=== PATIENT | female | born 1980 | race Caucasian/White ===

== ENCOUNTER 2020-09-22 10:57 | Outpatient (CLI) | payer OTHER, SELFPAY ==
--- NOTE | ~2020-09-22 | MM_ITS ---
EXAMINATION: MM screening paige BI w miguel a HISTORY: Screening mammogram TECHNIQUE: Craniocaudal and mediolateral oblique 3-D tomosynthesis images were obtained and synthetic 2-D images were generated. Bilateral rotated lateral cc views. CAD analysis was submitted and interp reted. COMPARISON: No prior mammogram is available for comparison at this institution. BREAST PARENCHYMAL COMPOSITION: The breasts are extremely dense, which lowers the sensitivity of mamm ography. FINDINGS: Bilateral mammographic asymmetries are noted. Bilateral diagnostic mammography and bilatera l breast ultrasound examination are recommended. IMPRESSION: 1. Bilateral mammographic asymmetries 2. Bilateral diagnostic mammography and bilateral breast ultrasound examination are recommended. BI-RADS Category 0: Incomplete: Needs additional imaging evaluation. Reviewed, dictated and finalized at location A.
== END 2020-09-22 10:58 | disposition home or self-care (01) ==
PROVIDERS: PCP Emergency Medicine; Visit Provider Obstetrics & Gynecology Gynecology
DX: Z12.31 Encounter for screening mammogram for malignant neoplasm of breast (principal); R92.8 Other abnormal and inconclusive findings on diagnostic imaging of breast
CPT/HCPCS: 77063; 77067

== ENCOUNTER 2020-10-15 11:53 | Outpatient (CLI) | payer OTHER, SELFPAY ==
--- NOTE | ~2020-10-15 | MMUS_ITS ---
EXAMINATION: MM diagnostic mammo BI, US breast BI limited HISTORY: Bilateral asymmetries on baseline screening mammogram TECHNIQUE: Additional 3-D tomosynthesis images of the breasts were performed and synthetic 2-D images were generated. CAD analysis was submitted and interpreted. High resolution limited bilateral breast ultrasound was performed. COMPARISON: 09/22/2020 FINDINGS: MAMMOGRAPHIC FINDINGS: Right breast: There is a 3.1 cm oval, obscured, low density mass in the anterior third of the upper o uter quadrant of the breast at the 10:00 location. There is a 7 mm oval, obscured, low density mass a t the 1:00 location in the middle/posterior third of the breast 6 cm from the nipple. Left breast: There is a 1.7 cm obscured low density mass in the anterior third of the outer breast at the 5:00 location 3 cm from the nipple. ULTRASOUND: Right breast: There is a 4.6 x 0.9 cm cyst at the 11:00 location. A 9 mm x 5 mm oval, anechoic, not p arallel mass is present at the 1:00 location 2 cm from the nipple which demonstrates posterior acoust ic enhancement and no internal vascularity. There is a 10 mm cyst at the 1:00 location 5 cm from the nipple. Left breast: There is a 1.5 x 0.9 cm cyst at the 5:00 location 3 cm from the nipple. There is a 9 mm x 5 mm cyst at the 8:00 location. IMPRESSION: 1. Probably benign right breast mass at the 1:00 location 2 cm from the nipple. 2. Recommend 6 month follow-up right diagnostic mammogram and ultrasound. BI-RADS category 3, probably benign findings. Reviewed, dictated and finalized at location A. IMPRESSION: 1. Probably benign right breast mass at the 1:00 location 2 cm from the nipple. 2. Recommend 6 month follow-up right diagnostic mammogram and ultrasound. BI-RADS category 3, probably benign findings.
== END 2020-10-15 11:54 | disposition home or self-care (01) ==
LOC: ANHIMG 11:54
PROVIDERS: PCP Emergency Medicine; Visit Provider Obstetrics & Gynecology Gynecology
DX: R92.8 Other abnormal and inconclusive findings on diagnostic imaging of breast (principal)
CPT/HCPCS: 76642; 77066

== ENCOUNTER 2022-07-04 11:47 | Outpatient (CLI) | payer BC, SELFPAY ==
--- NOTE | ~2022-07-04 | MMUS_ITS ---
EXAMINATION: MM diagnostic paige BI w miguel a, US breast RT limited HISTORY: Follow-up right breast mass TECHNIQUE: Additional 3-D tomosynthesis images of the breasts were performed and synthetic 2-D images were generated. CAD analysis was submitted and interpreted. High resolution limited right breast ult rasound was performed. COMPARISON: Comparison to multiple prior studies sequentially, with oldest reviewed study dated 09/22. BREAST PARENCHYMAL COMPOSITION: The breasts are extremely dense, which lowers the sensitivity of mamm ography FINDINGS: MAMMOGRAPHIC FINDINGS: The breasts are stable. Focal asymmetry in the lower inner quadrant of the right breast posteriorly i s unchanged. No new masses, calcifications or architectural distortion. ULTRASOUND: Limited right breast ultrasound: At 1:00, 2 cm from the nipple, there are 2 adjacent cysts, largest m easuring 6 mm. No suspicious masses to suggest malignancy. IMPRESSION: 1. Stable bilateral mammogram and right breast ultrasound. No suspicious abnormalities to suggest mal ignancy. 2. Routine yearly screening mammogram and regular clinical breast examination are recommended. BI-RADS Category 2: Benign finding(s). Reviewed, dictated and finalized at location A. [facility] IMPRESSION: 1. Stable bilateral mammogram and right breast ultrasound. No suspicious abnorm alities to suggest malignancy. 2. Routine yearly screening mammogram and regular clinical breast examination a re recommended. BI-RADS Category 2: Benign finding(s).
== END 2022-07-04 11:48 | disposition home or self-care (01) ==
LOC: ANHIMG 11:49
PROVIDERS: PCP Emergency Medicine; Visit Provider Obstetrics & Gynecology Gynecology
DX: N63.10 Unspecified lump in the right breast, unspecified quadrant (principal)
CPT/HCPCS: 76642; 77062; 77066; G0279

== ENCOUNTER 2023-12-23 00:04 | Day surgery (SDC) | payer OTHER, SELFPAY ==
[2023-12-07 14:37] VITALS: BMI 21.3
[2023-12-23 07:19] VITALS: BP 117/97; PULSE 107; RESP 18; TEMP 36.3; O2SAT 100
[2023-12-23] MEDS: LACTATED RINGERS 1,000 ML 150 ML IV CONT (07:34)
--- NOTE | 2023-12-23 07:51 | PM.HPGS ---
History of Present Illness History of Present Illness Consent: Risks, benefits, and alternatives have been discussed and questions answered. Patient agrees to proceed with procedure. Chief complaint: Neoplasm screening Narrative: Lindy Musa is a 43 year old female here for first screening colonoscopy Review of Systems Review of Systems: All systems reviewed & are unremarkable except as noted in HPI and below PMFSH Past Medical History Medical History (Updated 12/23/23 @ 07:52 by Jesus Vincent MD) Colon cancer screening Hives Family History Family History Father Dementia Mother No problems noted. Social History Social History (System 08/30/21 @ 12:18 by Ammy Ramos) Social History: Patient drinks caffeine once daily Smoking status: Current every day smoker Tobacco type: e-cigarettes/vaping Alcohol intake: current Drinks per week: 4 Substance use: never Substance use type: does not use Occupation/Education: occupation Additional occupation/education comments: [employer] Gender identity (if verbalized by the patient): Female Sexual Orientation (if Verbalized by the Patient): Straight or Heterosexual Spiritual care concerns: No Meds Home Medications and Allergies Home Medications Medication Instructions Recorded Confirmed Type cholecalciferol (vitamin D3) 1,250 1,250 mcg PO WEEKLY 09/11/20 12/07/23 History mcg (50,000 unit) capsule levonorgestrel 21 mcg/24 hr (up to 1 device intrauterine ONCE 09/11/20 12/07/23 History 8 years) 52 mg intrauterine device (Mirena) oxybutynin chloride 5 mg tablet 5 mg PO DAILY 12/07/23 12/07/23 History Allergies Allergy/AdvReac Type Severity Reaction Status Date / Time No Known Allergies Allergy Unverified 12/23/23 07:15 Vital Signs Vital Signs - 24 hr 12/23/23 07:19 Temperature 97.3 F L Pulse Rate 107 H Respiratory Rate 18 Blood Pressure 117/97 H Pulse Oximetry 100 Oxygen Delivery Room Air Exam Const: General: comfortable and no acute distress HENMT: Face/Nose/Sinus: Normal nares present Eyes: General: appearance normal, both eyes and all related structures Neck: Neck: no JVD Resp: Auscultation: clear to auscultation bilaterally Cardio: Rate: regular rate Rhythm: regular rhythm GI: Inspection: non-distended GI Palp: Yes Soft to palpation Skin: General skin exam: normal color Neuro: General: gait normal Speech: normal speech Extrem: General: normal to inspection Psych: Mental Status: mental status grossly normal Assessment and Plan Assessment and plan (1) Colon cancer screening: Code(s): Z12.11 - Encounter for screening for malignant neoplasm of colon Status: Acute Assessment and Plan: colonoscopy
--- NOTE | 2023-12-23 08:01 | WPDANESEPPF ---
Anes - Initial Pre Proc Eval Procedure: Operation Date: 12/23/23 08:30 Proposed Procedures p Screening Colonoscopy - Jesus Vincent MD Date/Time: 12/23/23 08:01 Surgeon: Jesus Vincent MD Pre Op Diagnosis: Neoplasm screening Patient Data Age: 43 Gender: F Height: 1.57 m Weight: 52 kg Last Vital Signs Temp 97.3 F L 12/23/23 07:19 Pulse 107 H 12/23/23 07:19 Resp 18 12/23/23 07:19 BP 117/97 H 12/23/23 07:19 Pulse Ox 100 12/23/23 07:19 O2 Del Method Room Air 12/23/23 07:19 Allergies Allergy/AdvReac Type Severity Reaction Status Date / Time No Known Allergies Allergy Unverified 12/23/23 07:15 Home Medications Medication Instructions Recorded Confirmed Type cholecalciferol (vitamin D3) 1,250 1,250 mcg PO WEEKLY 09/11/20 12/07/23 History mcg (50,000 unit) capsule levonorgestrel 21 mcg/24 hr (up to 1 device intrauterine ONCE 09/11/20 12/07/23 History 8 years) 52 mg intrauterine device (Mirena) oxybutynin chloride 5 mg tablet 5 mg PO DAILY 12/07/23 12/07/23 History Patient hx anesthesia problems: none Family hx anesthesia problems: none Results Review: All pre-operative results and documents have been reviewed as part of the pre-operative evaluation. [facility] [place] [place] Past Medical History Medical History (Updated 12/23/23 @ 07:52 by Jesus Vincent MD) Colon cancer screening Hives Family History Family History Father Dementia Mother No problems noted. Social History Social History (System 08/30/21 @ 12:18 by Ammy Ramos) Social History: Patient drinks caffeine once daily Smoking status: Current every day smoker Tobacco type: e-cigarettes/vaping Alcohol intake: current Drinks per week: 4 Substance use: never Substance use type: does not use Occupation/Education: occupation Additional occupation/education comments: [employer] Gender identity (if verbalized by the patient): Female Sexual Orientation (if Verbalized by the Patient): Straight or Heterosexual Spiritual care concerns: No Anes - Eval Final PreProcedure Day of Procedure 12/23/23 08:01 Patient weight: normal Heart: regular rate and rhythm Lungs: clear to auscultation Airway: Mallampati scale class II Neurological: alert and oriented Last oral intake: >/= 8 hours ASA classification: II Emergent: no Anesthetic plan: proceed Anesthesia type and monitoring: general GIVS and standard monitoring Results Review: All pre-operative results and documents have been reviewed as part of the pre-operative evaluation. Informed Consent: The patient's anesthetic plan and its attendant risks and benefits were discussed with the patient/family/POA. Questions were solicited and answers provided to the satisfaction of the patient/family/POA.
[2023-12-23 08:45] VITALS: BP 104/70; PULSE 79; RESP 24; O2SAT 100
[2023-12-23 08:55] VITALS: BP 104/57; PULSE 70; RESP 20; O2SAT 100
[2023-12-23 09:05] VITALS: BP 105/70; PULSE 61; RESP 15; O2SAT 100
== END 2023-12-23 09:10 | disposition home or self-care (01) ==
PROVIDERS: PCP Emergency Medicine; Referring Provider Obstetrics & Gynecology Gynecology; Visit Provider Internal Medicine Gastroenterology
PROC: 0DJD8ZZ Inspection of Lower Intestinal Tract, Via Natural or Artificial Opening Endoscopic (ICD-10-PCS; CPT 45378; principal; 2023-12-23 08:30)
DX: Z12.11 Encounter for screening for malignant neoplasm of colon (principal); D12.3 Benign neoplasm of transverse colon; K64.8 Other hemorrhoids; K63.89 Other specified diseases of intestine; F17.290 Nicotine dependence, other tobacco product, uncomplicated
CPT/HCPCS: 45385; 88305; J2704; J7120

== ENCOUNTER 2024-05-13 11:16 | Outpatient (CLI) | payer OTHER, SELFPAY ==
[2024-05-13 12:11] LABS: Hematocrit 40.7 % (37.0-47.0); Hemoglobin 13.8 g/dL (12.0-15.0); Mean Corpuscular HGB Conc 33.9 g/dl (32-36); Mean Corpuscular Hemoglobin 31.3 pg (26-34); Mean Corpuscular Volume 92.3 fl (80-100); Mean Platelet Volume 9.9 fl (7.4-10.4); Platelet Count Result 298 k/mm3 (150-375); Red Blood Count 4.41 M/mm3 (4.2-5.4); Red Cell Distribution Width 11.5 % (11.5-14.5); White Blood Count 5.4 K/mm3 (4.5-10.0)
[2024-05-13 12:28] LABS: Alanine Aminotransferase 12 U/L (6-35); Alkaline Phosphatase 45 U/L (38-126); Anion Gap 6 mmol/L (4-12); Aspartate Amino Transferase 22 U/L (14-36); Bilirubin,Total 0.8 mg/dL (0.2-1.3); Blood Urea Nitrogen 15 mg/dL (7-17); Calcium 9.2 mg/dL (8.4-10.2); Carbon Dioxide 24 mmol/L (22-30); Chloride 106 mmol/L (98-107); Cholesterol 191 mg/dL (0-200); Estimated Glomerular Filt Rate > 60; Glucose 79 mg/dL (65-110); HDL Direct 85 mg/dL; Sodium 136 mmol/L (137-145); Triglycerides 45 mg/dL (<150)
[2024-05-13 12:33] LABS: Hemoglobin A1C 4.8 % (<5.7)
[2024-05-13 12:38] LABS: LDL Cholesterol Direct 84 mg/dL
[2024-05-13 12:58] LABS: Thyroid Stimulating Hormone 0.541 uIU/mL (0.465-4.680)
[2024-05-13 13:27] LABS: Free T4 Free Thyroxine 1.15 ng/dL (0.78-2.19); Vitamin D 25 Hydroxy 41.8 ng/mL
== END 2024-05-13 11:17 | disposition home or self-care (01) ==
LOC: ANHLAB 11:21
PROVIDERS: PCP Emergency Medicine; Visit Provider Nurse Practitioner
DX: Z01.419 Encounter for gynecological examination (general) (routine) without abnormal findings (principal); E55.9 Vitamin D deficiency, unspecified
CPT/HCPCS: 36415; 80053; 80061; 82306; 82607; 83036; 84439; 84443; 85027

== ENCOUNTER 2024-11-17 14:19 | Outpatient (CLI) | payer OTHER, SELFPAY ==
--- NOTE | ~2024-11-17 | MM_ITS ---
EXAMINATION: MM screening paige BI w miguel a HISTORY: Screening TECHNIQUE: Craniocaudal and mediolateral oblique 3-D tomosynthesis images were obtained and synthetic 2-D images were generated. CAD analysis was submitted and interpreted. COMPARISON: Comparison to multiple prior studies sequentially, with oldest reviewed study dated 09/22. BREAST PARENCHYMAL COMPOSITION: Dense: The breasts are extremely dense, which lowers the sensitivity of mammography. FINDINGS: There is no evidence of suspicious mass, calcification, or architectural distortion to sugg est malignancy in either breast. There has been no suspicious interval change. IMPRESSION: 1. No mammographic evidence of malignancy. 2. Recommend routine screening mammography in one year. BI-RADS Category 1: Negative Reviewed, dictated and finalized at location B.
--- OUTSIDE RECORDS SUMMARY | 2024-11-17 15:02 | XMS_ITS | Clinical Summary ---
Author Organization [facility] Address [address] [place] [address] Care Team Providers Care Merchant Police Name Role Phone Unavailable Primary Care Provider Unavailabl e Source Comments [facility],non-owned Affiliates and Associated Physician Practices is amultiple site organization consisting of ambulatory clinics and hospital sitesin [place], [place], [place] and [place]. This disclosure is being madepursuant to the Care Everywhere program and may not contain all information available regarding this patient. Last updated 18.[facility] Allergies No known active allergies Medications * Be aware that medications may not be up to date on this document. Alwaysverify current medications with the patient. triamcinolone acetonide (KENALOG) 0.1 % ointment Apply to affected area 3 times daily 80 g 12/09/2019 Active Family History Medical History Relation Name Comments None Known Father None Known Mother Relation Name Status Comments Father Mother Social History Tobacco Use Types Packs/Day Years Used Date Smoking Tobacco: Never Smokeless Tobacco: Never Tobacco Cessation:Counseling Given: Yes Comments No Sex and Gender Information Value Date Recorded Sex Assigned at Not on file Legal Sex Female 12:47 PM CDT Gender Identity Not on file Sexual Orientation Not on file Last Filed Vital Signs Vital Sign Reading Time Taken Comments Blood Pressure 106/72 12/09/2019 3:11 PM CDT Pulse 84 12/09/2019 3:11 PM CDT Temperature 36.7 C (98.1 F) 12/09/2019 3:11 PM CDT Respiratory Rate 16 12/09/2019 3:11 PM CDT Oxygen Saturation 99% 12/09/2019 3:11 PM CDT Inhaled Oxygen Concentration - - Weight 52.2 kg (115 lb) 12/09/2019 3:11 PM CDT Height 157.5 cm (5' 2) 12/09/2019 3:11 PM CDT Body Mass Index 21.03 12/09/2019 3:11 PM CDT Plan of Treatment Health Maintenance Due Date Last Done Comments COLOGUARD (AGES 45-75) - COL ON CA SCREENING 1978 COLON MONITORING 1978 COLONOSCOPY - COLON CA SCREENING 1978 CT COLONOGRAPHY - COLON CA SCREENING 1978 Colorectal Cancer Screening 1978 FIT - COLON CA SCREENING 1978 FLEX SIG - COLON CA SCREENING 1978 LIPID TESTING 1978 MAMMOGRAM 1978 PAP SMEAR 1978 HIV SCREENING 1993 HEPATITIS C SCREENING 03/11/1996 DTAP/TDAP/TD VACCINES (1 - Tdap) 1997 HEPATITIS B VACCINE (1 of 3 - 19+ 3-dose series) 1997 COVID-19 VACCINE (1 - 2023-2 5 season) 2024 DEPRESSION SCREENING 06/08/2024 INFLUENZA VACCINE (Season Ended) 2025 ZOSTER VACCINE (1 of 2) 2028 HIB VACCINE Aged Out No longer eligi ble based on patient's age to complete this topic HPV VACCINE Aged Out No longer eligi ble based on patient's age to complete this topic MENINGOCOCCAL (Group B) VACC INE SHARED DECISION-MAKING Aged Out No longer eligibl e based on patient's age to complete this topic MENINGOCOCCAL GROUPS A/C/Y/W VACCINE Aged Out No longer eligible b ased on patient's age to complete this topic PNEUMOCOCCAL VACCINE Aged Out No long er eligible based on patient's age to complete [place] [address] [employer] , [place], [facility], [place] [address] * Guarantor: JOHN BROUSSARD Account Type Relation to Patient Date of Phone Billing Address Personal/Family [address] [place] [address] [employer] SELF PAY NO INSURANCE Member Subscriber Plan / Payer (Ef fective for All Dates) Name:John Broussard Member ID:Not on file Relation to Subscriber:Not on file Name:JOHN BROUSSARD Subscriber ID:Not on file Address: [address] [place], [place] [address] [address] Payer ID:Not on file Group ID:Not on file Type:Self Pay Address: [place], [place] * Guarantor: JOHN BROUSSARD Account Type Relation to Patient Date of Phone Billing Address Personal/Family [address] [place] [address] [employer] SELF PAY NO INSURANCE Member Subscriber Plan / Payer (Ef fective for All Dates) Name:John Broussard Member ID:Not on file Relation to Subscriber:Not on file Name:JOHN BROUSSARD Subscriber ID:Not on file Address: [address] [place] [address] [place] [address] Payer ID:Not on file Group ID:Not on file Type:Self Pay Address: [place], [place] * Guarantor: JOHN BROUSSARD Account Type Relation to Patient Date of Phone Billing Address Personal/Family [address] [facility] [place] [address] [facility] SELF PAY NO INSURANCE Member Subscriber Plan / Payer (Ef fective for All Dates) Name:John Broussard Member ID:Not on file Relation to Subscriber:Not on file Name:JOHN BROUSSARD Subscriber ID:Not on file Address: [address] [place], [place] [address] [address] Payer ID:Not on file Group ID:Not on file Type:Self Pay Address: [place], [place]
== END 2024-11-17 14:20 | disposition home or self-care (01) ==
LOC: ANHIMG 14:22
PROVIDERS: PCP Emergency Medicine; Visit Provider Obstetrics & Gynecology Gynecology
DX: Z12.31 Encounter for screening mammogram for malignant neoplasm of breast (principal)
CPT/HCPCS: 77063; 77067